=== PATIENT | female | born 1980 ===

== ENCOUNTER 2023-04-03 08:46 | Day surgery (SDC) | payer BC, OTHER ==
[2023-04-03] VITALS (7 sets, daily range): BP systolic 106–120; BP diastolic 78–92
[~2023-04-03] VITALS: Ht 162.6 cm; Wt 53.5 kg
[~2023-04-03 08:46] MED LIST: AMPDEX10CR PO; MULVITA PO; THYR60 PO
--- NOTE | 2023-04-03 10:30 | NUR ---
Surgical site prepped with 2% Chlorhexidine cloth wipe. Lungs clear T/O to Auscultation. History, Chart, Medications and Allergies reviewed before start of procedure. Pre-Op teaching done. Pt verbalizes understanding. Pre-Op teaching done. Pt verbalizes understanding.
== END 2023-04-03 13:45 | disposition home or self-care (01) ==
LOC: ORSCMMR 08:46 → ORD 10:15 → ORSCMMR 10:15
PROVIDERS: Surgery
PROC: 0JB70ZX Excision of Back Subcutaneous Tissue and Fascia, Open Approach, Diagnostic (ICD-10-PCS; principal; 2023-04-03 10:15)
DX: D17.1 Benign lipomatous neoplasm of skin and subcutaneous tissue of trunk (principal); E03.9 Hypothyroidism, unspecified; C81.90 Hodgkin lymphoma, unspecified, unspecified site; F90.9 Attention-deficit hyperactivity disorder, unspecified type; Z79.899 Other long term (current) drug therapy
CPT/HCPCS: 88304; A9270; J0690; J1100; J1885; J2250; J2371; J2405; J2704; J3010; J7120

== ENCOUNTER → 2024-08-17 | Outpatient (CLI) | payer BC, OTHER ==
[2024-08-25 10:55] LABS: HPV HIGH RISK BY TMA Not Detected; HPV SOURCE Vaginal
== END ==
LOC: LAB SHORT 15:30 → LAB 15:30
PROVIDERS: Physician Assistant
DX: Z01.419 Encounter for gynecological examination (general) (routine) without abnormal findings (principal)
CPT/HCPCS: 87624; G0123